=== PATIENT | female | born 1970 | race Hispanic/Latino ===

== ENCOUNTER → 2017-06-12 | Outpatient (CLI) | payer OTHER | LOC: MAMMO 13:07 | PROVIDERS: ATTEND Obstetrics & Gynecology Obstetrics | DX: Z12.31 Encounter for screening mammogram for malignant neoplasm of breast (principal) | CPT/HCPCS: G0202 ==

== ENCOUNTER → 2017-07-09 | Outpatient (CLI) | payer OTHER ==
[~2017-07-09] MED LIST: IOTHALAMATE MEGLUMINE 17.20% 250 ML BTL ONE
--- NOTE | 2017-07-09 13:24 | Diagnostic Imaging Report ---
PROCEDURE:VOIDING CYSTOURETHROGAM TECHNIQUE:VCUG performed with a Hpipps catheter. Patient was evaluated both on supine and upright position. INDICATION:History of prolapsed bladder. Urinary dribble. Eval for urethral diverticulum. COMPARISON:None. FINDINGS: Fluoroscopy time: 1.9 minutes. Total dose: 74.22 mGy. [employer] film was imaged. Normal appearing pelvis. Left pelvic phlebolith. Cysto-Conray was administered via a Phipps catheter placement. There is good distention of the bladder. Phipps was then removed. Patient was unable to void on the table. While patient was on the table, the prevoid images demonstrates the inferior edge of the bladder, slightly inferior to the superior ramus. During the attempt to void on the table, the inferior edge of the bladder is at the inferior pubic ramus. Multiple attempts to the patient void, the bladder distended from mid pubic ramus to the inferior pubic ramus. Very small funneling of the inferior bladder edge is visualized. Patient was then brought up in an upright position. Slight descent of the bladder to the mid pubic symphysis level. On attempts to void, the bladder distended additional 1-2 cm below the inferior pubic ramus. Patient was instructed to void in the bathroom. No post void residual identified. No reflux to the kidneys identified. CONCLUSION: 1. Bladder prolapse which is worsened upon standing position with the inferior edge 1-2 cm below the pubic ramus. Overall descent of the bladder on Valsalva is at least 2-3 cm. Funneling of the inferior bladder edge at the junction of the bladder and urethra. 2. No urethral diverticulum. No post void residual. Dictated by: Elieser Beatty M.D. on 07/09/2017 at 13:24 Electronically approved by: Elieser Beatty M.D. on 07/09/2017 at 13:24
== END ==
LOC: DX 10:32
PROVIDERS: ATTEND Obstetrics & Gynecology Obstetrics
DX: N36.1 Urethral diverticulum (principal)
CPT/HCPCS: 74455; Q9958